=== PATIENT | female | born 1960 | race African-American/Black ===

== ENCOUNTER 2017-08-26 11:10 | Emergency (ER) | payer BC, OTHER ==
--- NOTE | 2017-08-26 12:06 | ER Document Report ---
ED General - General Chief Complaint: Ear Pain Stated Complaint: HEADACHE Time Seen by Provider: 08/26/17 11:45 TRAVEL OUTSIDE OF THE [place] IN LAST 30 DAYS: No - HPI Patient complains to provider of: Headache ear pain Notes: Patient coming in for evaluation of headache and ear pain patient states was recently seen by primary care physician diagnosed with a ear infection and started on Bactrim. Patient states she continues to Bactrim however has worsening pain was told to take Aleve however does not relieve her pain therefore came to the ER for further evaluation. Patient states pain causing her headache is mostly in the back of her neck and in the front of her head. Patient also states bilateral ear pain. Denies any fevers chills nausea vomiting diarrhea. Patient was to be no obvious distress upon my evaluation. - Related Data Allergies/Adverse Reactions: No Known Allergies Allergy (Verified 08/26/17 11:11) Past Medical History - Social History Smoking Status: Never Smoker Chew tobacco use (# tins/day): No Frequency of alcohol use: None Drug Abuse: None Family History: Reviewed & Not Pertinent Patient has suicidal ideation: No Patient has homicidal ideation: No Renal/ Medical History: Denies: Hx Peritoneal Dialysis Review of Systems - Review of Systems Constitutional: Other - Headache ear pain EENT: No symptoms reported Cardiovascular: No symptoms reported Respiratory: No symptoms reported Gastrointestinal: No symptoms reported Genitourinary: No symptoms reported Female Genitourinary: No symptoms reported Musculoskeletal: No symptoms reported Skin: No symptoms reported Hematologic/Lymphatic: No symptoms reported Neurological/Psychological: No symptoms reported -: Yes All other systems reviewed and negative Physical Exam - Vital signs Vitals: Temp Pulse Resp BP Pulse Ox 98.8 F 64 20 145/76 H 97 08/26/17 11:14 08/26/17 11:14 08/26/17 11:14 08/26/17 11:14 08/26/17 11:14 Interpretation: Normal - General General appearance: Appears well, Alert - HEENT Head: Normocephalic, Atraumatic Eyes: Normal Conjunctiva: Normal Cornea: Normal Extraocular movements intact: Yes Eyelashes: Normal Pupils: PERRL Fundascopic: Normal Ears: Normal External canal: Normal Tympanic membrane: Normal Sinus: Normal Nasal: Normal Mouth/Lips: Normal Pharynx: Normal Neck: Other - Palpation of paraspinal muscles bilaterally reproduced patient's pain along with palpation of the frontalis muscle of the head. Consistent with a tension headache no lymphadenopathy no shotty nodes - Respiratory Respiratory status: No respiratory distress Chest status: Nontender Breath sounds: Normal Chest palpation: Normal - Cardiovascular Rhythm: Regular Heart sounds: Normal auscultation Murmur: No - Abdominal Inspection: Normal Distension: No distension Bowel sounds: Normal Tenderness: Nontender Organomegaly: No organomegaly - Back Back: Normal, Nontender - Extremities General upper extremity: Normal inspection, Nontender, Normal color, Normal ROM , Normal temperature General lower extremity: Normal inspection, Nontender, Normal color, Normal ROM , Normal temperature, Normal weight bearing. No: Monserrat's sign - Neurological Neuro grossly intact: Yes Cognition: Normal Orientation: AAOx4 Jose Coma Scale Eye Opening: Spontaneous [place]ba Coma Scale Verbal: Oriented [place] Coma Scale Motor: Obeys Commands Jose Coma Scale Total: 15 Speech: Normal Motor strength normal: LUE, RUE, LLE, RLE Sensory: Normal - Psychological Associated symptoms: Normal affect, Normal mood - Skin Skin Temperature: Warm Skin Moisture: Dry Skin Color: Normal Course - Re-evaluation Re-evalutation: 08/26/17 15:29 Examination patient is is not revealing signs of infection at this time. Patient's examination is consistent with a tension headache. Will treat patient with Ultram encouraged patient continue with Tylenol and Motrin combination along with lidocaine patch provided here in the ER. Patient is to continue with her antibiotics follow-up with her PCP - Vital Signs Vital signs: Temp Pulse Resp BP Pulse Ox 98 F 68 16 148/72 H 99 08/26/17 12:38 08/26/17 12:38 08/26/17 12:38 08/26/17 12:38 08/26/17 12:38 Discharge - Discharge Clinical Impression: Tension headache Condition: Good Disposition: HOME, SELF-CARE Instructions: Oral Narcotic Medication ([facility]), Tension Headache ([facility]) Additional Instructions: Continue with her antibiotics as prescribed by her doctor. I would recommend taking anti-inflammatory medication either Aleve or the Motrin prescribed along with 1000 mg of Tylenol each time he take the Motrin. He may also take the Ultram for severe pain as prescribed. Follow-up with your primary care physician return to ER symptoms worsen Prescriptions: Ibuprofen [Motrin 600 Mg Tablet] 600 mg PO TID #30 tablet Tramadol HCl [Ultram 50 mg Tablet] 50 mg PO ASDIR PRN #10 tablet PRN Reason: Referrals: MICHELLE LAMBERT MD [Primary Care Provider] - Follow up as needed
[2017-08-26 13:00] VITALS: BP 148/72
== END 2017-08-26 12:38 | disposition home or self-care (01) ==
LOC: ER 11:10
DX: G44.209 Tension-type headache, unspecified, not intractable (principal); H92.03 Otalgia, bilateral
CPT/HCPCS: 99282

== ENCOUNTER 2018-05-16 07:07 | Day surgery (SDC) | payer OTHER ==
[2018-05-16] MEDS ORDERED: DIPHENHYDRAMINE HCL 50 MG/ML VIAL ONE (07:19)
[2018-05-16] MEDS ORDERED: ONDANSETRON HCL INJ/PF 4 MG/2 ML SDV ONE (07:19)
[2018-05-16] MEDS ORDERED: NALOXONE HCL INJ/PF 0.4 MG/1 ML SDV ONE (07:20)
[2018-05-16] MEDS ORDERED: FLUMAZENIL INJ 0.5 MG/5 ML VIAL ONE (07:20)
[2018-05-16] MEDS ORDERED: FENTANYL CITRATE INJ/PF 100 MCG/2 ML AMPUL ONE (07:20)
[2018-05-16] MEDS ORDERED: EPINEPHRINE INJ 1 MG/10 ML DISP.SYRIN ONE (07:20)
[2018-05-16] MEDS ORDERED: GLUCAGON,HUMAN RECOMB 1 MG INJ ONE (07:20)
[2018-05-16] MEDS: MIDAZOLAM 2 MG/2 ML INJ ONE ×5 (07:46→08:09)
--- NOTE | 2018-05-16 08:39 | Discharge Summary ---
Discharge Summary ([facility]C) - Discharge Final Diagnosis: Scattered diverticulosis Date of Surgery: 05/16/18 Discharge Date: 05/16/18 Condition: Good Treatment or Instructions: [facility] [place] [id number] POST ENDOSCOPY DISCHARGE INSTRUCTIONS 1. Diet: Start clear liquids that a regular diet as tolerated. 2. Resume all preoperative medications. All oral anticoagulants and aspirins can be resumed 24 hours after procedure. 3. If a polypectomy was performed some bleeding per rectum may occur. This should stop within 3 days. If not, please contact the office. 4. If you had a colonoscopy you may experience some bloating and delayed return of normal bowel function for several days, your regular bowel movement pattern should resume within a week. 5. Please contact [facility] at to make an appointment with Dr. Sidhu for 1 to 3 weeks following procedure. 6. If you have any questions or concerns regarding your care,treatment plan or follow up, please contact our office. 7. Per clinical guidelines we recommend you undergo a repeat colonoscopy in 10 years. Referrals: MICHELLE LAMBERT MD [Primary Care Provider] - Discharge Diet: As Tolerated Discharge Activity: Activity As Tolerated Home Care Assistance: None Needed Report the Following to Your Physician Immediately: Shortness of Breath, Increase in Pain, Fever over 101 Degrees
--- NOTE | 2018-05-16 08:42 | Operative Report ---
Operative Report DATE OF SURGERY: 05/16/18 PREOPERATIVE DIAGNOSIS: Screening for colon cancer POSTOPERATIVE DIAGNOSIS: Normal colon except for scattered diverticulosis OPERATION: Total colonoscopy to cecum with photodocumentation SURGEON: RUPEROT MAHER ANESTHESIA: Moderate Sedation TISSUE REMOVED OR ALTERED: None COMPLICATIONS: None ESTIMATED BLOOD LOSS: None INTRAOPERATIVE FINDINGS: See below PROCEDURE: Obtaining informed consent the patient was taken from the preoperative holding area to the main endoscopy suite where monitoring devices were attached to the patient. Plan and surgical timeout were conducted The patient was placed in the left lateral decubitus position with knees to chest. A perianal examination was performed. There was no visible or palpable anorectal pathology. Sphincter tone was felt to be normal. The flexible adult colonoscope was advanced through the anal rectal canal, all the way to the cecum. Visualization of the cecum was achieved and the ileocecal valve, the appendiceal orifice and transillumination of the anterior abdominal wall were demonstrated.. This was an excellent study on the well-prepped bowel. The colonoscope was withdrawn slowly and methodically checked and the mucosa carefully. There was no evidence of tumor, stricture, bleeding or polyp. There were rare diverticulosis. The scope was slowly withdrawn through the anal rectal canal. Complete visualization of the rectum was achieved with photodocumentation. The scope was withdrawn to the patient's anus. The patient tolerated the procedure well and was taken to the recovery area in stable condition. Per screening guidelines, patient be appropriate candidate for follow-up colonoscopy in 10 years.
[2018-05-16 09:42] VITALS: BP 119/74
== END 2018-05-16 09:30 | disposition home or self-care (01) ==
LOC: END 07:07
PROVIDERS: ATTEND Surgery
DX: Z12.11 Encounter for screening for malignant neoplasm of colon (principal); I10 Essential (primary) hypertension; E78.00 Pure hypercholesterolemia, unspecified; R73.03 Prediabetes; Z79.899 Other long term (current) drug therapy; Z79.84 Long term (current) use of oral hypoglycemic drugs; K57.30 Diverticulosis of large intestine without perforation or abscess without bleeding
CPT/HCPCS: 45378; 82962; J2250; J3010; J0171; J1200; J1610; J2310; J2405; J3490